=== PATIENT | male | born 1995 | race African-American/Black ===

== ENCOUNTER → 2016-07-14 | Outpatient (CLI) | payer BC, OTHER ==
[~2016-07-14] MED LIST: DICL-201 PO
--- NOTE | 2016-07-14 15:25 | DIAGNOSTIC IMAGING REPORT ---
LUMBAR SPINE MRI HISTORY: Lumbar radiculopathy LUMBAR RADICULITIS TECHNIQUE: Multiplanar multisequence MRI of the lumbar spine was performed without the use of contrast. COMPARISON: 08/01/2015 FINDINGS: For the purpose of the report the L5-S1 disc space will be located on axial image 23 of 26. Persistent grade 1 retrolisthesis of L5 on S1 currently measures 5 mm, slightly increased from 3 mm on the prior study. L1-L2: No significant central canal or neural foraminal narrowing. L2-L3: No significant central canal or neural foraminal narrowing. L3-L4: No significant central canal or neural foraminal narrowing. L4-L5: Minimal broad-based disc bulge. No significant impact with thecal sac. L5-S1: Right posterior disc herniation somewhat increased in prominence from the prior study. Posterior disc displacement is 6 mm with transaxial measurements of 1.5 cm. This again is progressive compared to the prior study. It creates moderate deformity right anterior aspect thecal sac with moderate compromise of the right S1 nerve root. IMPRESSION: 1. Slight increase in prominence of right central disc herniation L5-S1. 2. This is accentuated by grade 1 reverse retrolisthesis of L5 on S1 which is minimally increased in prominence from the prior study as well. 3. Impact upon the thecal sac is currently in a right anterior position with mild to moderate impact upon the right S1 nerve root. Electronically signed by: Serjio Mccloud M.D. 07/14/2016 3:24 PM Dictated Date/Time: 07/14/2016 3:14 PM
== END | disposition home or self-care (01) ==
LOC: C.MRI 12:49
PROVIDERS: ATTEND Family Medicine
DX: M54.16 Radiculopathy, lumbar region (principal)

== ENCOUNTER → 2016-07-23 | Day surgery (SDC) | payer BC, OTHER ==
[2016-07-17 15:31] VITALS: Ht 177.8 cm; Wt 84.5 kg
[~2016-07-23] VITALS: Ht 177.8 cm; Wt 84.5 kg
[~2016-07-23] MED LIST changes: +IOPAMIDOL INJ 61% 15 ML VIAL ONE; +LIDOCAINE HCL 1% MPF 5 ML VIAL ONE; +SODIUM CHLORIDE 0.9% INJ 10 ML VIAL ONE
--- NOTE | 2016-07-23 14:57 | History & Physical Bridge - [place] ---
H&P Re-Evaluation Bridge Note: I have examined the patient, reviewed the History & Physical and in the interval since the performance of the History & Physical I have noted the following changes of clinical significance: No changes noted
[2016-07-23 15:21] VITALS: TEMP 36.5
--- NOTE | 2016-07-23 15:27 | Discharge Instructions ---
Discharge Instructions Date of Service Jul 23, 2016. Visit Reason for Visit: Lumbar Radiculopathy Discharge Discharge Diagnosis / Problem: right leg pain Discharge Goals Goal(s): Decrease discomfort, Improve function Activity Recommendations Activity Limitations: resume your previous activity Anesthesia . Post Anesthesia Instructions: If you have had General Anesthesia or IV Sedation: * Do not drive today. * Resume driving when surgeon permits. * Do not make important decisions or sign legal documents today. * Call surgeon for: 1. Temperature elevations greater than 101 degrees F. 2. Uncontrollable pain. 3. Excessive bleeding. 4. Persistent nausea and vomiting. 5. Medication intolerance (nausea, vomiting or rash). * For nausea and vomiting use only clear liquids such as: tea, soda, bouillon until nausea subsides, then gradually increase diet as tolerated. * If you have any concerns or questions, call your surgeon's office. If physician is unavailable and it is an emergency, call 911 or go to the nearest emergency room. . Diet Recommendations Recommended Home Diet: resume previous diet Procedures Procedures Performed: LUMBAR EPIDURAL STEROID INJECTION Pending Studies Studies pending at discharge: no Medical Emergencies . Who to Call and When: Medical Emergencies: If at any time you feel your situation is an emergency, please call 911 immediately. . Non-Emergent Contact Non-Emergency issues call your: Specialist . . "Provider Documentation" section prepared by Valentín Dang.
[2016-07-23 15:38] VITALS: BP 131/66; PULSE 44; O2SAT 98
--- NOTE | 2016-07-23 16:26 | OPERATIVE REPORT ---
DATE OF OPERATION: 07/23/2016 PREOPERATIVE DIAGNOSIS: L5-S1 herniated nucleus pulposus with a right S1 radiculopathy. POSTOPERATIVE DIAGNOSIS: Same. PROCEDURE: Right paramedian L5-S1 intralaminar epidural steroid injection under fluoroscopic guidance. INDICATIONS: The patient is a 21-year-old -[place] male who is a member of the [employer], who has had problems with radicular pain down the leg that has affected his ability to function as he recently participated in [employer]. He has failed conservative treatment. He presents today for an epidural steroid injection to provide him with relief. PHYSICAL EXAMINATION: Pleasant male seated comfortably, in no apparent distress. He has a positive seated straight leg raise on the right. Sensation decreased in the right S1, otherwise intact. CONSENT: Verbal and written consent was obtained from the patient. Risks and benefits were reviewed. Risks include, but are not limited to epidural abscess, epidural hematoma, allergic reaction, and dural puncture. The patient wishes to proceed. DESCRIPTION OF PROCEDURE: The patient was taken back to the special procedures room of the [facility], where he was maintained in a prone position. Backside was cleansed with Betadine x3 and a dry sterile dressing was applied. Fluoroscope was used to identify the L5-S1 intralaminar space. Overlying skin on the right side was anesthetized with 4 mL of lidocaine 1% with a 25-gauge 1.5-inch needle. A 22-gauge 3.5-inch Tuohy needle was then directed down towards the intralaminar space. It was advanced under lateral fluoroscopic guidance and loss of resistance was noted at a depth of 7.5 cm. Isovue-300 contrast 1 mL was injected in which demonstrated epidural uptake pattern with outlining of the S1 and S2 nerve roots on the right side. He then underwent a slow injection of 40 mg of Depo-Medrol and 4 mL of preservative free sodium chloride. Injection was tolerated if done slowly and reproduced a familiar radicular sensation down the leg. DISPOSITION: 1. The patient is taken out into the discharge recovery area, where he will be discharged home once discharge criteria have been met. 2. Follow up in the [facility] office in 2-4 weeks. I attest to the content of the Intraoperative Record and any orders documented therein. Any exceptio ns are noted below.
== END | disposition home or self-care (01) ==
LOC: X.SURG 14:09
PROVIDERS: ATTEND Physical Medicine & Rehabilitation
DX: M51.27 Other intervertebral disc displacement, lumbosacral region (principal); M54.16 Radiculopathy, lumbar region